=== PATIENT | male | born 1980 | race Caucasian/White ===

== ENCOUNTER 2018-02-22 11:58 | Emergency (ER) | payer OTHER, MEDICAID ==
[2018-02-22] MEDS: ONDANSETRON 4MG/2ML VIAL (J2405) IV ×2 (12:28→14:00)
[2018-02-22] MEDS: HYDROmorphone HCL 1 MG/ML SYRINGE (J1170) IV (12:29)
[2018-02-22] MEDS: KETOROLAC 30 MG/ML VIAL (J1885) IV (12:29)
[2018-02-22] MEDS: LR 1,000 ML IV (12:34)
[2018-02-22 13:42] LABS: BASO % 0.2 % (0.0-1.0); EOS % 0.1 % (0.0-3.0); HEMATOCRIT 35.3 % (42.0-52.0); HEMOGLOBIN 12.4 g/dl (13.5-17.5); IMMATURE GRANULOCYTE % 0.4 % (0-3.0); LYMPH # 0.6 10^3/uL (1.5-4.5); LYMPH % 3.4 % (24.0-44.0); MEAN CORPUSCULAR HEMOGLOBIN 32.9 pg (27.0-33.0); MEAN CORPUSCULAR HGB CONC 35.1 g/dl (32.0-36.5); MEAN CORPUSCULAR VOLUME 93.6 fl (80.0-96.0); MONO # 1.6 10^3/uL (0.0-0.8); MONO % 8.5 % (0.0-5.0); NEUTROPHILS # 16.6 10^3/uL (1.8-7.7); NEUTROPHILS % 87.4 % (36.0-66.0); PLATELET COUNT, AUTOMATED 292 10^3/uL (150-450); RED BLOOD COUNT 3.77 10^6/uL (4.30-6.10); RED CELL DISTRIBUTION WIDTH 12.1 % (11.5-14.5); WHITE BLOOD COUNT 18.9 10^3/uL (4.0-10.0)
[2018-02-22 13:51] LABS: PROTHROMBIN TIME 13.3 SECONDS (12.4-14.5)
[2018-02-22 14:00] LABS: ANION GAP 6 MEQ/L (8-16); BLOOD UREA NITROGEN 19 MG/DL (7-18); CALCIUM LEVEL 8.5 MG/DL (8.5-10.1); CARBON DIOXIDE LEVEL 27 MEQ/L (21-32); CHLORIDE LEVEL 108 MEQ/L (98-107); GLOMERULAR FILTRATION RATE > 60.0 (>60); GLUCOSE, FASTING 135 MG/DL (70-100); POTASSIUM SERUM 3.6 MEQ/L (3.5-5.1); SODIUM LEVEL 141 MEQ/L (136-145)
[2018-02-22] MEDS: NS 1,000 ML IV (14:01)
[2018-02-22] MEDS: PROPOFOL 200 MG/20 ML VIAL IV (14:50)
== END 2018-02-22 19:16 | disposition home or self-care (01) ==
LOC: M ED 11:58
DX: S82.51XA Displaced fracture of medial malleolus of right tibia, initial encounter for closed fracture (principal); S82.831A Other fracture of upper and lower end of right fibula, initial encounter for closed fracture; S53.125A Posterior dislocation of left ulnohumeral joint, initial encounter; W13.2XXA Fall from, out of or through roof, initial encounter; Y92.9 Unspecified place or not applicable; Y93.9 Activity, unspecified; Y99.0 Civilian activity done for income or pay
CPT/HCPCS: J1170